=== PATIENT | male | born 1945 | race Caucasian/White ===

== ENCOUNTER 2017-06-20 13:38 | Emergency (ER) | payer MEDICARE, OTHER ==
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
[2017-06-20 14:24] VITALS: BP 143/52
== END 2017-06-20 15:44 | disposition home or self-care (01) ==
LOC: JP.ED 13:38
DX: S20.219A Contusion of unspecified front wall of thorax, initial encounter (principal); Z79.82 Long term (current) use of aspirin; Z79.899 Other long term (current) drug therapy; Z79.84 Long term (current) use of oral hypoglycemic drugs; V49.9XXA Car occupant (driver) (passenger) injured in unspecified traffic accident, initial encounter; Y92.415 Exit ramp or entrance ramp of street or highway as the place of occurrence of the external cause
CPT/HCPCS: 99285

== ENCOUNTER 2017-07-05 13:23 | Observation (INO) | payer MEDICARE, OTHER ==
[2017-07-05] MEDS ORDERED: Sodium Chloride 0.9% 1,000 ML IV SCH ×2 (16:45→17:45)
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
--- NOTE | 2017-07-05 20:10 | PCM.HP ---
H&P History of Present Illness - General Date of Service: 07/05/17 Admit Problem/Dx: Admission Diagnosis/Problem Admission Diagnosis/Problem Dehydration Source of Information: Patient, Provider History Limitations: Reports: No Limitations - History of Present Illness Initial Comments - Free Text/Narative: Ian presents to the emergency room today with weakness, dehydration and confusion. He has been at home helping to provide care for his who is on hospice and has not been taking care of himself. His daughters noted today that he was more weak than usual and seemed confused so they brought him in for evaluation. He has been improving with fluids but still has some difficulty with his memory. He reports that he feels much better after some fluids. He does report occasional nocturnal diarrhea but typically this is one stool. This does not happen every night. He has not had any fevers. He has not had any abdominal pain. No change in his bladder habits. He does not feel short of breath. He reports that he simply has been so worried about his that he has not been taking care of himself. Workup in the emergency room was suggestive of dehydration. There is no evidence for infection. Chest x-ray is clear. Head CT was normal. He will be admitted for hydration and observation overnight. - Related Data Allergies/Adverse Reactions: Allergies Allergy/AdvReac Type Severity Reaction Status Date / Time No Known Allergies Allergy Verified 07/05/17 14:20 Home Medications: Home Meds Aspirin [Low Dose Aspirin EC] 81 mg PO DAILY 06/20/14 [History] Candesartan [Atacand] 32 mg PO DAILY 06/20/14 [History] Metoprolol Tartrate [Lopressor] 12.5 mg PO Q12HR 06/20/14 [History] Omeprazole [Prilosec] 20 mg PO BEDTIME 06/20/14 [History] atorvaSTATin [Lipitor] 80 mg PO BEDTIME 06/20/14 [History] metFORMIN [Glucophage] 500 mg PO BIDMEALS 06/20/14 [History] Tamsulosin HCl 0.4 mg PO DAILY 06/20/17 [History] Carbidopa/Levodopa [Carbidopa-Levodopa 25-100] 1 tab PO TID 07/05/17 [History] Past Medical History Other Musculoskeletal History: 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 sciatic nerve damage Neurological History: Reports: Parkinson's Other Neuro History: has a tremor of right hand Other Dermatologic History: lump on arm removed. - Past Surgical History HEENT Surgical History: Reports: Tonsillectomy Social & Family History - Family History Cardiac: Denies: CAD - Tobacco Use Smoking Status *Q: Never Smoker Years of Tobacco use: 30 Packs/Tins Daily: 1 - Caffeine Use Caffeine Use: Reports: Coffee - Alcohol Use Alcohol Use History: No - Recreational Drug Use Recreational Drug Use: No H&P Review of Systems - Review of Systems: Review Of Systems: See Below Free Text/Narrative: A complete 12 point review of systems was obtained. Pertinent positives and negatives are noted in the history of present illness. All other systems were reviewed and were negative except as noted. Exam - Exam Exam: See Below - Vital Signs Vital Signs: Last Vital Signs Temp 36.3 C 07/05/17 14:25 Pulse 68 07/05/17 17:39 Resp 16 07/05/17 17:39 BP 97/33 L 07/05/17 17:39 Pulse Ox 95 07/05/17 17:39 Weight: 64.7 kg - Exam Quality Assessment: No: Supplemental Oxygen General: Alert, Oriented, Cooperative. No: Mild Distress HEENT: Conjunctiva Clear. No: Mucosa Moist & [place] (dry), Scleral Icterus Neck: Supple, Trachea Midline. No: Lymphadenopathy Lungs: Clear to Auscultation, Normal Respiratory Effort Cardiovascular: Regular Rate, Regular Rhythm. No: Systolic Murmur GI/Abdominal Exam: Normal Bowel Sounds, Soft, Non-Tender, No Distention Back Exam: Normal Inspection, Full Range of Motion Extremities: No Pedal Edema. No: Increased Warmth Peripheral Pulses: 2+: Dorsalis Pedis (L), Dorsalis Pedis (R) Skin: Warm, Dry, Intact Neuro Extensive - Mental Status: Alert, Normal Mood/Affect, Nl Response to Commands. No: Oriented x3 Neuro Extensive - Motor, Sensory, Reflexes: Tremor. No: Dysarthria, Abnormal Motor Psychiatric: Alert, Normal Affect - Patient Data Lab Results Last 24 hrs: Laboratory Results - last 24 hr 07/05/17 07/05/17 07/05/17 Range/Units 17:00 17:00 18:02 WBC 17.9 H (4.5-11.0) K/uL RBC 4.24 L (4.30-5.90) M/uL Hgb 13.1 (12.0-15.0) g/dL Hct 39.8 L (40.0-54.0) % MCV 94 (80-98) fL MCH 31 (27-31) pg MCHC 33 (32-36) % Plt Count 577 H (150-400) K/uL Neut % (Auto) 81 H (36-66) % Lymph % (Auto) 11 L (24-44) % [place] % (Auto) 6 (2-6) % Eos % (Auto) 2 (2-4) % Baso % (Auto) 0 (0-1) % Sodium 138 L (140-148) mmol/L Potassium 5.0 (3.6-5.2) mmol/L Chloride 105 (100-108) mmol/L Carbon Dioxide 18 L (21-32) mmol/L Anion Gap 20.0 H (5.0-14.0) mmol/L BUN 40 H D (7-18) mg/dL Creatinine 1.6 H D (0.8-1.3) mg/dL Est Cr Clr Drug Dosing 37.66 mL/min Estimated GFR (MDRD) 43 L (>60) Glucose 126 H (74-106) mg/dL Lactic Acid (0.4-2.0) mmol/L Calcium 8.6 (8.5-10.1) mg/dL Total Bilirubin 0.3 (0.2-1.0) mg/dL AST 13 L (15-37) U/L ALT 7 L (12-78) U/L Alkaline Phosphatase 96 (46-116) U/L Total Protein 7.4 (6.4-8.2) g/dL Albumin 3.7 (3.4-5.0) g/dL Globulin 3.7 H (2.3-3.5) g/dL Albumin/Globulin Ratio 1.0 L (1.2-2.2) Urine Color Yellow Urine Appearance Slightly cloudy Urine pH 5.0 (4.5-8.0) Ur Specific [place] 1.025 (1.008-1.030) Urine Protein Trace (NEGATIVE) mg/dL Urine Glucose (UA) Normal (NEGATIVE) mg/dL Urine Ketones Negative (NEGATIVE) mg/dL Urine Occult Blood Negative (NEGATIVE) Urine Nitrite Negative (NEGAITVE) Urine Bilirubin Small (NEGATIVE) Urine Urobilinogen 1 (NORMAL) mg/dL Ur Leukocyte Esterase Negative (NEGATIVE) Urine RBC Not seen (0-5) Urine WBC 0-5 (0-5) Ur Epithelial Cells Few Amorphous Sediment Few Urine Bacteria Moderate Urine Mucus Many 07/05/17 Range/Units 18:29 WBC (4.5-11.0) K/uL RBC (4.30-5.90) M/uL Hgb (12.0-15.0) g/dL Hct (40.0-54.0) % MCV (80-98) fL MCH (27-31) pg MCHC (32-36) % Plt Count (150-400) K/uL Neut % (Auto) (36-66) % Lymph % (Auto) (24-44) % [place] % (Auto) (2-6) % Eos % (Auto) (2-4) % Baso % (Auto) (0-1) % Sodium (140-148) mmol/L Potassium (3.6-5.2) mmol/L Chloride (100-108) mmol/L Carbon Dioxide (21-32) mmol/L Anion Gap (5.0-14.0) mmol/L BUN (7-18) mg/dL Creatinine (0.8-1.3) mg/dL Est Cr Clr Drug Dosing mL/min Estimated GFR (MDRD) (>60) Glucose (74-106) mg/dL Lactic Acid 2.3 H (0.4-2.0) mmol/L Calcium (8.5-10.1) mg/dL Total Bilirubin (0.2-1.0) mg/dL AST (15-37) U/L ALT (12-78) U/L Alkaline Phosphatase (46-116) U/L Total Protein (6.4-8.2) g/dL Albumin (3.4-5.0) g/dL Globulin (2.3-3.5) g/dL Albumin/Globulin Ratio (1.2-2.2) Urine Color Urine Appearance Urine pH (4.5-8.0) Ur Specific [place] (1.008-1.030) Urine Protein (NEGATIVE) mg/dL Urine Glucose (UA) (NEGATIVE) mg/dL Urine Ketones (NEGATIVE) mg/dL Urine Occult Blood (NEGATIVE) Urine Nitrite (NEGAITVE) Urine Bilirubin (NEGATIVE) Urine Urobilinogen (NORMAL) mg/dL Ur Leukocyte Esterase (NEGATIVE) Urine RBC (0-5) Urine WBC (0-5) Ur Epithelial Cells Amorphous Sediment Urine Bacteria Urine Mucus Result Diagrams: 07/05/17 17:00 07/05/17 17:00 Imaging Impressions Last 24 hrs: Chest x-ray - images personally reviewed - lungs are clear with no infiltrate, mass or effusion. Heart size is normal. Head CT - images personally reviewed - no evidence for intracranial bleed or other abnormality *Q Meaningful Use (ADM) - VTE Risk Assess *Q Each Risk Factor Represents 1 Point: None Total Score 1 Point Risk Factors: 0 Each Risk Factor Represents 2 Points: Age 60 - 74 Years Total Score 2 Point Risk Factors: 2 Each Risk Factor Represents 3 Points: None Total Score 3 Point Risk Factors: 0 Each Risk Factor Represents 5 Points: None Total Score 5 Point Risk Factors: 0 Venous Thromboembolism Risk Factor Score *Q: 2 - Problem List (1) Confusion SNOMED Code(s): 675946999 ICD Code: R41.0 - DISORIENTATION, UNSPECIFIED Status: Acute Current Visit : Yes (2) Dehydration SNOMED Code(s): 05211856 ICD Code: E86.0 - DEHYDRATION Status: Acute Current Visit: Yes Problem List Initiated/Reviewed/Updated: Yes Orders Last 24hrs: Active Orders 24 hr Category Date Time Status Patient Status Manage Transfer [TRANSFER] Routine ADT 07/05/17 19:54 Ordered Chest 2V [CR] Stat Exams 07/05/17 17:18 Taken Head wo Cont [CT] Stat Exams 07/05/17 16:34 Taken CULTURE BLOOD [BC] Urgent Lab 07/05/17 18:30 Received CULTURE BLOOD [BC] Urgent Lab 07/05/17 18:40 Received CULTURE URINE [RM] Stat Lab 07/05/17 18:00 Received UA W/MICROSCOPIC [URIN] Urgent Lab 07/05/17 18:02 Ordered Sodium Chloride 0.9% [Normal Saline] 1,000 ml Med 07/05/17 16:45 Active IV ASDIRECTED Sodium Chloride 0.9% [Normal Saline] 1,000 ml Med 07/05/17 17:45 Active IV ASDIRECTED Blood Culture x2 Reflex Set [OM.PC] Urgent Oth 07/05/17 18:29 Ordered Resuscitation Status Routine Resus Stat 07/05/17 19:56 Ordered Medication Orders Sodium Chloride (Normal Saline) 1,000 mls @ 500 mls/hr IV ASDIRECTED [facility] Last Admin: 07/05/17 16:57 Dose: 500 mls/hr Sodium Chloride (Normal Saline) 1,000 mls @ 999 mls/hr IV ASDIRECTED [facility] Assessment/Plan Comment:: ASSESSMENT AND PLAN - Weakness, confusion and dehydration - patient not taking care of himself while he's taking care of his on hospice. No strong evidence for infection at this time. Seems to be improving with IV fluids provided in the emergency room and I would expect he should be back to baseline tomorrow. Head CT was negative. -IV fluids (plan to complete his second liter which is infusing now) -Monitoring of vital signs, especially temperature to look for fever -Follow-up urine culture though UA not strongly suggestive of infection -Reassess mental status in the morning Parkinson's disease - Stable at this time. -Continue home medications Maintenance issues - - DVT prophylaxis - mechanical - GI prophylaxis - home PPI - Nutrition - regular diet - Aragon catheter - not indicated CODE STATUS - full code Admission justification - patient will be referred observation status for overnight monitoring and IV fluids Disposition - anticipate discharge to home tomorrow Primary care physician - Dr. Arpan Roman M.D.
[2017-07-05] MEDS ORDERED: Pantoprazole 40 MG Tab.CR PO SCH (21:06)
[2017-07-05] MEDS ORDERED: Ondansetron 4 MG Tab.DIS PO PRN (21:06)
[2017-07-05] MEDS ORDERED: Acetaminophen 325 MG Tab PO PRN (21:06)
[2017-07-05] MEDS: Metoprolol Tartrate 25 MG Tab PO SCH (22:11)
[2017-07-05] MEDS: Carbidopa/Levodopa 25-100 MG Tab PO SCH (22:14)
[2017-07-05] MEDS: atorvaSTATin 20 MG Tab PO SCH (22:14)
[2017-07-05] MEDS ORDERED: FLU Vacc TS 2017-18 (65yr UP)/PF 180 MCG/0.5 ML Syringe IM ONE (22:28)
[2017-07-05] MEDS ORDERED: Diphtheria,Pertussis(Acell),Tetanus Vaccine 0.5 ML SDV IM ONE (22:28)
[2017-07-05] MEDS ORDERED: Pneumococcal Polyvalent-23 Vaccine 0.5 ML SDV IM ONE (23:01)
[2017-07-06] MEDS ORDERED: METFORMIN 500 MG PO SCH (08:00)
[2017-07-06] MEDS: Metoprolol Tartrate 25 MG Tab PO SCH ×3 (08:59→13:53)
[2017-07-06] MEDS ORDERED: Tamsulosin 0.4 MG (PTOM) PO SCH (09:00)
[2017-07-06] MEDS ORDERED: LEVODOPA PO SCH (09:00)
[2017-07-06] MEDS ORDERED: Aspirin 81 MG Tab.EC PO SCH (09:00)
[2017-07-06] MEDS ORDERED: CARBIDOPA PO SCH (09:00)
[2017-07-06] MEDS: CANDESARTAN 32 MG PO SCH ×2 (09:00→13:54)
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
[2017-07-06] MEDS: atorvaSTATin 20 MG Tab PO SCH (13:51)
[2017-07-06] MEDS: Carbidopa/Levodopa 25-100 MG Tab PO SCH (13:52)
[2017-07-06 13:53] VITALS: BP 130/46
[2017-07-06] MEDS ORDERED: atorvaSTATin 20 MG Tab PO SCH (21:00)
[2017-07-06] MEDS ORDERED: ATORVASTATIN 80MG (PTOM) PO SCH (21:00)
--- NOTE | 2017-07-07 10:03 | CR ---
Chest 2V HISTORY: elevated wbc COMPARISON: None FINDINGS: Lungs appear clear and normally aerated. Cardiomediastinal silhouette is within normal limits. [place] ry artery stent is noted. There is mild atherosclerotic calcification in the aortic arch. No vascular redistribution or pleural fluid can be seen. Anterolateral osteophytes are noted along the thoracic spine. IMPRESSION: No acute chest abnormality identified.
== END 2017-07-06 12:00 | disposition home or self-care (01) ==
LOC: JP.ED 13:23 → JP.MS 19:54
PROVIDERS: ADMIT Internal Medicine; ATTEND Internal Medicine
DX: R41.0 Disorientation, unspecified (principal); E86.0 Dehydration; G20 Parkinson's disease; Z79.82 Long term (current) use of aspirin; Z79.84 Long term (current) use of oral hypoglycemic drugs; Z79.899 Other long term (current) drug therapy
CPT/HCPCS: 36415; 70450; 71046; 80048; 80053; 81001; 83605; 85025; 85027; 87040; 87086; 96360; 96361; 99285; A9270; J7040; G0378